=== PATIENT | female | born 1985 | race Caucasian/White ===

== ENCOUNTER → 2018-06-01 11:22 | Outpatient (CLI) | payer OTHER, SELFPAY ==
--- NOTE | 2018-06-01 11:25 | DI.US.S_ITS ---
PROCEDURE: US OB <= 14 WEEKS FETUS INDICATIONS: VIABILITY AND DATES OUTSIDE/PRIOR DATING DATA: Last menstrual period (LMP): 03/26/18. LMP-based estimated date of delivery (ROMEO): 12/31/18. First dating scan (date and location): 06/01/18, [facility]. Estimated date of delivery (ROMEO) from first dating scan: 01/04/19. TECHNIQUE: Real-time scanning was performed of the fetus and maternal pelvic organs, with image documentation. Endovaginal scanning was also performed to better visualize the fetus and maternal ovaries. COMPARISON: None. FINDINGS: Embryo: A single live intrauterine is seen. The measured heart rate is 171 beats per minute. The crown-rump length measures 2.3 cm, corresponding to an estimated gestational age of 9 weeks 0 days. It is too early for detailed anatomic assessment. By visual inspection, the amount of amniotic fluid is within normal limits. No significant findings of subchorionic/perigestational hemorrhage are seen. Measurement variability in dating: +/- 4 weeks by LMP, +/- 7 days by mean sac diameter (use before 6 weeks gestation if crown-rump length not able to be measured), +/- 5 days by crown-rump length (up to 8 weeks 6 days gestation), +/- 7 days by crown-rump length (up to 13 weeks 6 days gestation). Maternal organs: Ovaries are unremarkable. Limited images through the kidneys demonstrate no hydronephrosis. IMPRESSION: A single live intrauterine is seen. No significant discrepancy is found between the estimated gestational age based on these images and the estimated gestational age based upon the given date of the last menstrual period. Dictated by: Jose Resendez M.D. on 06/01/2018 at 12:30 Approved by: Jose Resendez M.D. on 06/01/2018 at 12:31
== END ==
PROVIDERS: PCP Nurse Practitioner Family; Visit Provider Specialist
DX: Z34.01 Encounter for supervision of normal first pregnancy, first trimester (principal); Z3A.09 9 weeks gestation of pregnancy
CPT/HCPCS: 76801

== ENCOUNTER → 2018-06-01 11:48 | Outpatient (CLI) | payer OTHER, SELFPAY ==
[2018-06-01 12:33] LABS: Add Manual Diff / Slide Review NO; Basophils Absolute Auto 0 /uL (0-100); Basophils Percent Auto 0.4 % (0-2); Eosinophils Absolute Auto 100 /uL (0-450); Eosinophils Percent Auto 0.6 % (2-4); Hematocrit 44.7 % (36-46); Lymphocytes Absolute Auto 2200 /uL (1100-4500); Lymphocytes Percent Auto 26.6 % (25-40); Mean Corpuscular HGB Conc 33.6 % (30-36); Mean Corpuscular Hemoglobin 30.8 PG (26-34); Mean Corpuscular Volume 91.6 fL (80-100); Monocytes Absolute Auto 600 /uL (0-900); Monocytes Percent Auto 6.7 % (3-14); Neutrophils Absolute Auto 5400 /uL (1500-7000); Neutrophils Percent Auto 65.7 % (50-75); Platelet Count 212 X10^3/uL (150-400); Red Blood Cell Count 4.88 X10^6/uL (4.0-5.2); Red Cell Distribution Width 14.1 % (11.6-14.8); White Blood Cell Count 8.3 X10^3/uL (4.5-11.0)
[2018-06-01 13:23] LABS: Appearance Urine UA SL CLOUDY; Bilirubin Urine UA NEGATIVE (NEGATIVE); Color Urine UA YELLOW; Glucose Urine UA NEGATIVE (Negative); Ketones Urine UA NEGATIVE (NEGATIVE); Leukocyte Esterase Urine UA TRACE (NEGATIVE); Nitrite Urine UA NEGATIVE (Negative); Occult Blood Urine UA TRACE-LYSED (Negative); Protein Urine UA NEGATIVE (Negative); Specific Gravity Urine UA <=1.005 (1.000-1.035); Urobilinogen Urine UA 0.2 E.U./dL (0.2)
[2018-06-01 15:54] LABS: Hepatitis B Surface Antigen NEGATIVE s/c (NEGATIVE); Rubella Antibody IgG 8.8 IU/mL (>15)
[2018-06-01 16:09] LABS: HIV 1 and 2 Antibody NEGATIVE (NEGATIVE); Hep C Virus Ab w/Reflex Quant NEGATIVE s/c (NEGATIVE)
[2018-06-01 17:29] LABS: Amorphous Sediment Urine 1+; Bacteria Urine Moderate (10-30); Mucus Urine 1+ (Negative); RBC Urine 0-1/HPF (0-5/HPF); Renal Epithelial Cells Urine 0-1/HPF; Squamous Epithelial Cell Urine 1-5 /HPF; WBC Urine 1-5/HPF (0-5/HPF)
[2018-06-03 14:12] LABS: RPR Screen Nonreactive (Nonreactive)
== END ==
PROVIDERS: PCP Nurse Practitioner Family; Visit Provider Specialist
DX: Z34.91 Encounter for supervision of normal pregnancy, unspecified, first trimester (principal)
CPT/HCPCS: 36415; 80055; 81003; 81015; 86703; 86787; 86803; 86850; 86900; 86901; 87086

== ENCOUNTER → 2018-12-02 11:55 | Outpatient (CLI) | payer OTHER, SELFPAY ==
[2018-12-03 14:00] LABS: Strep Grp B PCR POS for Grp B Strep
== END ==
PROVIDERS: PCP Nurse Practitioner Family; Visit Provider Specialist
DX: Z34.03 Encounter for supervision of normal first pregnancy, third trimester (principal); Z3A.36 36 weeks gestation of pregnancy
CPT/HCPCS: 87186; 87653

== ENCOUNTER 2019-01-02 09:33 | Outpatient (CLI) | payer OTHER, SELFPAY ==
--- NOTE | 2019-01-02 10:52 | PM.OBTRLD ---
Visit Information Visit Information Date of evaluation: 01/02/19 Primary OB Provider: Porsha Mccall Reason for Evaluation: Yes non-stress test non-stress test reason: other (Postdates) [facility] Social History Smoking Status: Former smoker Social History Smoking Status: Former smoker Evaluation Evaluation Baseline heart rate: 130 Variability: Moderate (11-25) monitor accelerations: Present monitor decelerations: Absent Contraction Frequency (minutes): 0 Category of Tracing: I Diagnosis, Plan/Disposition Final Diagnosis (1) 40 weeks gestation of : Current Visit: No Status: Acute Plan/Disposition Plan: Reactive nonstress test. Consent form for induction signed. She is scheduled for January 04 OB Disposition: home
== END 2019-01-02 10:20 | disposition home or self-care (01) ==
LOC: LABOR 09:47 → OB 15:34
PROVIDERS: PCP Nurse Practitioner Family; Visit Provider Specialist
DX: O48.0 Post-term pregnancy (principal); Z3A.40 40 weeks gestation of pregnancy
CPT/HCPCS: 59025; G0378; G0379

== ENCOUNTER 2019-01-04 06:59 | Observation (INO) | payer OTHER, SELFPAY ==
[2019-01-04] MEDS: CLINDAMYCIN 900 MG/50 ML PIGGYBACK 50 MG IV (08:04)
[2019-01-04] MEDS: LACTATED RINGERS 1,000 ML 100 ML IV (08:04)
[2019-01-04] MEDS: OXYTOCIN PREMIX 30 UNIT/500 ML PLAST..BAG IV (08:10)
[2019-01-04 08:34] LABS: Add Manual Diff / Slide Review NO; Basophils Absolute Auto 0 /uL (0-100); Basophils Percent Auto 0.3 % (0-2); Eosinophils Absolute Auto 100 /uL (0-450); Eosinophils Percent Auto 1.8 % (2-4); Hematocrit 38.3 % (36-46); Hemoglobin 13.4 g/dL (12.0-16.0); Lymphocytes Absolute Auto 2000 /uL (1100-4500); Lymphocytes Percent Auto 25.9 % (25-40); Mean Corpuscular Hemoglobin 32.1 PG (26-34); Mean Corpuscular Volume 91.9 fL (80-100); Monocytes Absolute Auto 500 /uL (0-900); Monocytes Percent Auto 6.9 % (3-14); Neutrophils Absolute Auto 5100 /uL (1500-7000); Neutrophils Percent Auto 65.1 % (50-75); Platelet Count 166 X10^3/uL (150-400); Red Blood Cell Count 4.16 X10^6/uL (4.0-5.2); Red Cell Distribution Width 14.6 % (11.6-14.8); White Blood Cell Count 7.9 X10^3/uL (4.5-11.0)
[2019-01-04 10:48] VITALS: BP 96/62
--- NOTE | 2019-01-04 20:50 | P.HPOB_ITS ---
OB HPI Date/Time Date of admission: 01/04/19 Date Patient Seen: 01/04/19 Time Patient Seen: 08:30 History of Present Condition Chief complaint: OBS : 1 Para: 0 Estimated Date of Delivery: 12/31/18 Estimated Gestational Age (weeks): 40 Narrative: Kristopher Laureano is a 33 year old female admitted for postdates in duction Indications Indication for induction OB: post dates History of Present care: good care, initiated at week # (11), number of visits (12) and pounds weight gain (38) Dating criteria: LMP confirmed by 1st trimester US Ultrasounds: normal mid trimester US Obstetrical complications: none Medical complications: none Preadmission Labs Blood type: A (+) positive -: Antibody screen: negative, GBS status: positive, HBsAG: negative, HIV: negative and RPR/VDLR: negative -: Chlamydia screen: not detected and Gonorrhea screen: not detected -: Rubella: not immune and Varicella: immune HCAB: negative PAP: Normal Quad screen: Normal 1 hr GTT: 104 Evaluation Evaluation Baseline heart rate: 120 Variability: Moderate (11-25) monitor accelerations: Present monitor decelerations: Absent Contraction Frequency (minutes): 0 Category of Tracing: I Cervical dilation (cm): 2 Cervical effacement (%): 80 station: -2 Laboratory results: Laboratory Tests 01/04/19 01/04/19 08:10 08:10 WBC 7.9 RBC 4.16 Hgb 13.4 Hct 38.3 MCV 91.9 MCH 32.1 MCHC 35.0 RDW 14.6 Plt Count 166 Neut % (Auto) 65.1 Lymph % (Auto) 25.9 [place] % (Auto) 6.9 Eos % (Auto) 1.8 L Baso % (Auto) 0.3 Neut # (Auto) 5100 Lymph # (Auto) 2000 [place] # (Auto) 500 Eos # (Auto) 100 Baso # (Auto) 0 Blood Type A Positive Antibody Screen Negative [facility] Medical History (Updated 01/04/19 @ 20:57 by Porsha Mccall MD) Depression (Acute) IBS (irritable bowel syndrome) (Acute) OCD (obsessive compulsive disorder) (Acute) Surgical History (Updated 01/04/19 @ 20:57 by Porsha Mccall MD) Hx of tonsillectomy (Acute) Family History (Updated 01/04/19 @ 20:59 by Porsha Mccall MD) Mother Cancer Family/Other Cancer Social History Smoking Status: Former smoker Family History (Updated 01/04/19 @ 20:59 by Porsha Mccall MD) Mother Cancer Family/Other Cancer Social History Smoking Status: Former smoker Meds Home Medications and Allergies Home Medications Medication Instructions Recorded Confirmed Type glycerin (adult) 1 suppositor PA DAILY PRN 06/01/18 06/01/18 History prenat.vits,rosa,jgr-qicy-jqesz 1 tab PO DAILY 06/01/18 06/01/18 History breast pump #1 each 10/28/18 Rx Allergies Allergy/AdvReac Type Severity Reaction Status Date / Time Cephalosporins AdvReac Hives Verified 06/01/18 11:38 Penicillins AdvReac Hives Verified 06/01/18 11:36 Review of Systems Review of Systems Narrative: No headaches, scotomata, epigastric pain. Good movement. No leakage of fluid. ROS Unobtainable: All systems reviewed & are unremarkable except as noted in HPI and below Exam Vital Signs (past 8 hours): Blood pressure 96/57, temperature 97.5?, pulse 71 Narrative Exam Narrative: HEENT exam within normal limits. Abdomen is soft, nontender with vertex. Extremities without edema and nontender. Objective Labs Result Diagrams: 01/04/19 08:10 Labs: Laboratory Results - last 24 hr 01/04/19 01/04/19 08:10 08:10 WBC 7.9 RBC 4.16 Hgb 13.4 Hct 38.3 MCV 91.9 MCH 32.1 MCHC 35.0 RDW 14.6 Plt Count 166 Neut % (Auto) 65.1 Lymph % (Auto) 25.9 [place] % (Auto) 6.9 Eos % (Auto) 1.8 L Baso % (Auto) 0.3 Neut # (Auto) 5100 Lymph # (Auto) 2000 [place] # (Auto) 500 Eos # (Auto) 100 Baso # (Auto) 0 Blood Type A Positive Antibody Screen Negative Assessment and Plan Assessment and Plan Assessment and Plan narrative: Postdates with favorable cervix plan is for Pitocin induction.
--- NOTE | 2019-01-04 21:01 | PM.DS.1 ---
History of Present Illness History of Present Illness Date Patient Seen: 01/04/19 Time Patient Seen: 15:30 Chief complaint: OBS Narrative: Patient was admitted for Pitocin induction for postdates. She had contractions on the monitor but no increase in discomfort and no change in her cervix. Discharge Providers Provider Date of admission: 01/04/19 06:59 Discharge Date: 01/04/19 Primary care physician: PAULA Lopes Consults: 01/04/19 07:12 Consult to Anesthesiology Urgent Comment: Consulting Provider: Anesthesiologist Reason for consultation: Epidural Has provider been notified: No Discharge provider: Porsha Mccall MD Summary Hospital Course Discharge Diagnosis: Failed induction for postdates Hospital Course: Patient arrived on Labor and delivery for Pitocin induction. She was begun on IV Pitocin with contractions monitored but no change in her cervix. Options reviewed with the patient decision was made to send the patient to her hotel room overnight and return in a.m. for repeat attempt at induction unless she goes into labor on her own. Status at Discharge Cognitive/behavioral status at discharge: oriented Functional status at discharge: independent ambulation Overall status at discharge: patient is back to baseline Time Spent with Patient Time spent: Less than 30 minutes Exam Vital Signs (past 8 hours): Blood pressure 108/57, pulse 76, temperature 37? Narrative Exam Narrative: Patient is comfortable. No change in cervix. No leakage of fluid. Objective Labs Result Diagrams: 01/04/19 08:10 Labs: Laboratory Results - last 24 hr 01/04/19 01/04/19 08:10 08:10 WBC 7.9 RBC 4.16 Hgb 13.4 Hct 38.3 MCV 91.9 MCH 32.1 MCHC 35.0 RDW 14.6 Plt Count 166 Neut % (Auto) 65.1 Lymph % (Auto) 25.9 [place] % (Auto) 6.9 Eos % (Auto) 1.8 L Baso % (Auto) 0.3 Neut # (Auto) 5100 Lymph # (Auto) 2000 [place] # (Auto) 500 Eos # (Auto) 100 Baso # (Auto) 0 Blood Type A Positive Antibody Screen Negative Discharge Plan Discharge Plan Patient Disposition: Home Discharge comment: failed induction return in am Discharge Med Rec/Prescriptions Prescriptions: Continued (DME) breast pump [Lullaby Double Electric Breast] device See Dose Instructions .ROUTE .MEDSUPPLY Qty: 1 RF: 0 prenat.vits,rosa,pgx-sami-[id number] tablet 1 tab PO DAILY RF: 0 Discontinued glycerin (adult) suppository 1 suppositor RI DAILY PRNRF: 0 Follow up/Referrals: Tia Lew ARNP [Primary Care Provider] - Provider Discharge Instructions Diet: Regular Discharge Data Primary Care Provider: Tia Lew Attending Provider: Porsha Mccall Admit Date/Time: 01/04/19 06:59 Discharges patient from system. Discharge Date/Time: 01/04/19 16:09
== END 2019-01-04 16:09 | disposition home or self-care (01) ==
PROVIDERS: Admitting Provider Specialist; PCP Nurse Practitioner Family; Visit Provider Specialist
DX: O48.0 Post-term pregnancy (principal); Z3A.40 40 weeks gestation of pregnancy
CPT/HCPCS: 36415; 59025; 59050; 85025; 86850; 86900; 86901; 96360; G0378; G0379; J2590

== ENCOUNTER 2019-01-06 06:52 | Inpatient (IN) | payer OTHER, SELFPAY ==
[2019-01-06] MEDS: CLINDAMYCIN 900 MG/50 ML PIGGYBACK 50 MG IV ×2 (07:47→15:19)
[2019-01-06] MEDS: LACTATED RINGERS 1,000 ML 100 ML IV ×3 (07:47→21:05)
[2019-01-06] MEDS: OXYTOCIN PREMIX 30 UNIT/500 ML PLAST..BAG IV (07:52)
[2019-01-06 09:30] VITALS: BP 107/63
[2019-01-06] MEDS: CALCIUM CARBONATE 500 MG TAB 1000 MG PO (17:33)
--- NOTE | 2019-01-06 19:48 | P.HPOB_ITS ---
OB HPI Date/Time Date of admission: 01/06/19 Date Patient Seen: 01/06/19 Time Patient Seen: 07:15 History of Present Condition Chief complaint: LABOR & DELIVERY : 1 Para: 0 Estimated Date of Delivery: 12/31/18 Estimated Gestational Age (weeks): 40 Narrative: Kristopher Laureano is a 33 year old female admitted for induction Indications Indication for induction OB: post dates History of Present care: good care, initiated at week # (11), number of visits (12) and pounds weight gain (26) Dating criteria: LMP confirmed by 1st trimester US Ultrasounds: normal mid trimester US Obstetrical complications: none Medical complications: none Preadmission Labs -: Antibody screen: negative, GBS status: positive, HBsAG: negative, HIV: negative and RPR/VDLR: negative -: Chlamydia screen: not detected and Gonorrhea screen: not detected -: Rubella: not immune and Varicella: immune HCAB: negative PAP: Normal Quad screen: Normal 1 hr GTT: 104 Evaluation Evaluation Baseline heart rate: 130 Variability: Moderate (11-25) monitor accelerations: Present monitor decelerations: Absent Contraction Frequency (minutes): 5 Category of Tracing: I Cervical dilation (cm): 2 Cervical effacement (%): 80 station: -1 [facility] Medical History (Updated 01/04/19 @ 20:57 by Porsha Mccall MD) Depression (Acute) IBS (irritable bowel syndrome) (Acute) OCD (obsessive compulsive disorder) (Acute) Surgical History (Updated 01/04/19 @ 20:57 by Porsha Mccall MD) Hx of tonsillectomy (Acute) Family History (Updated 01/04/19 @ 20:59 by Porsha Mccall MD) Mother Cancer Family/Other Cancer Social History Smoking Status: Former smoker Family History (Updated 01/04/19 @ 20:59 by Porsha Mccall MD) Mother Cancer Family/Other Cancer Social History Smoking Status: Former smoker Meds Home Medications and Allergies Home Medications Medication Instructions Recorded Confirmed Type prenat.vits,rosa,ixn-cxlv-kpyrz 1 tab PO DAILY 06/01/18 01/06/19 History breast pump #1 each 10/28/18 Rx Allergies Allergy/AdvReac Type Severity Reaction Status Date / Time Cephalosporins AdvReac Hives Verified 06/01/18 11:38 Penicillins AdvReac Hives Verified 06/01/18 11:36 Review of Systems Review of Systems Narrative: Patient denies leakage of fluid. Good movement. No signs or symptoms of preeclampsia ROS Unobtainable: All systems reviewed & are unremarkable except as noted in HPI and below Exam Narrative Exam Narrative: HEENT exam within normal limits. Lungs are clear to ausc ultation percussion. Heart is regular rate and rhythm no S3-S4 or murmurs. Gravid abdomen. Infant is vertex. Extremities with trace edema and nontender. Assessment and Plan Assessment and Plan Assessment and Plan narrative: 40 week 6 day in for Pitocin induction. She had failed Pitocin induction 2 days ago.
[2019-01-06] MEDS: FENT 2MCG/ML BUPIV 0.125% EPI 200 MCG/100 ML PLAST..BAG 8 MCG EPIDURAL (21:03)
--- NOTE | 2019-01-07 02:01 | P.PCNOB_ITS ---
Labor & Delivery Delivery date: 01/07/19 Intrapartal events: Prolonged 2nd Stage > 2.5 hours Induction method: per pitocin protocol Delivery monitor: external FHT and external uterine Route of delivery: L&D Laceration Description: Perineal - 2nd Degree Delivery repair: chromic (3 0) Estimated blood loss (mL): 100 Anesthesia type: Epidural Narrative: Patient arrived on Labor and delivery for Pitocin induction for postdates. She received an epidural catheter for pain control. heart tones category 1 to category 2 throughout labor. Patient delivered spontaneously, over an intact perineum. The viable male infant was placed on maternal abdomen. After the cord stopped pulsating the cord was clamped, cut, and cord bloods obtained. Placenta delivered spontaneously, intact, with 3 vessels. There were no cervical or vaginal tears. There is a second-degree perineal tear that was repaired in the usual 2 layer fashion with 3 0 chromic suture. Baby Boy Jeremiah weight 9 lb 1 oz with Apgars of 9 and 9 [place] Baby 1: gender: Male Presentation: vertex position: Right Occiput Anterior Placenta delivery description: Spontaneous cord vessel description: 3 Vessels score (1 min): 9 score (5 min): 9 Plan for aftercare: Routine care
[2019-01-07] MEDS: LANOLIN OINT 7 GM 1 APPLIC TOP (09:49)
[2019-01-07] MEDS: DERMOPLAST SPRAY 20% 60 ML 1 SPRAY TOP (09:49)
[2019-01-07] MEDS: DOCUSATE 250 MG CAPSULE PO (09:49)
[2019-01-07] MEDS: PRENATAL VIT,CALC/IRON/FOLIC 1 TABLET 1 TAB PO (09:49)
[2019-01-07 09:50] VITALS: TEMP 36.8
[2019-01-07] MEDS: IBUPROFEN 600 MG TABLET PO ×2 (09:50→16:18)
--- NOTE | 2019-01-07 14:18 | PM.OBPN.1 ---
Subjective - OB Subjective Patient comments: no complaints [place] baby status: doing well feeding status: exclusively breast feeding Date Patient Seen: 01/07/19 Time Patient Seen: 14:18 Interval history: Patient is day 1. She is having some difficulty with breast-feeding but continued to try. She has some discomfort in her perineal area. Bleeding is moderate. No signs or symptoms of preeclampsia. Exam Vital Signs (past 8 hours): Blood pressure 98/64, pulse 78, temperature 98.2?- 01/07/19 09:50 Temperature 98.2 F Narrative Exam Narrative: Abdomen is soft, nontender. Uterus is firm, at U, nontender. Extremities without edema and nontender. Assessment & Plan Assessment and Plan (1) Vaginal delivery: Status: Acute Current Visit: Yes Plan day: 1 plan OB: routine care Time Spent With Patient Time: Total time spent is greater than 50% in coordination of care (as documented) at patient's floor/unit and/or counseling patient: Time with patient: less than 15 minutes
[2019-01-07 16:18] VITALS: TEMP 36.8
[2019-01-08 05:27] LABS: Add Manual Diff / Slide Review NO; Basophils Absolute Auto 100 /uL (0-100); Basophils Percent Auto 0.6 % (0-2); Eosinophils Absolute Auto 200 /uL (0-450); Eosinophils Percent Auto 2.1 % (2-4); Hematocrit 37.5 % (36-46); Hemoglobin 12.7 g/dL (12.0-16.0); Lymphocytes Absolute Auto 2900 /uL (1100-4500); Lymphocytes Percent Auto 25.9 % (25-40); Mean Corpuscular Hemoglobin 31.7 PG (26-34); Mean Corpuscular Volume 93.5 fL (80-100); Monocytes Absolute Auto 700 /uL (0-900); Neutrophils Absolute Auto 7200 /uL (1500-7000); Neutrophils Percent Auto 65.4 % (50-75); Platelet Count 162 X10^3/uL (150-400); Red Blood Cell Count 4.02 X10^6/uL (4.0-5.2); Red Cell Distribution Width 14.8 % (11.6-14.8)
[2019-01-08] MEDS: DOCUSATE 250 MG CAPSULE PO (10:22)
[2019-01-08] MEDS: PRENATAL VIT,CALC/IRON/FOLIC 1 TABLET 1 TAB PO (10:22)
--- NOTE | 2019-01-08 11:15 | PM.OBDS.1 ---
Discharge Providers Provider Date of admission: 01/06/19 06:52 Discharge Date: 01/08/19 Primary care physician: PAULA Lopes Consults: 01/06/19 07:20 Consult to Anesthesiology Urgent Comment: Consulting Provider: Anesthesiologist Reason for consultation: epidural Has provider been notified: No 01/07/19 09:02 Consult to Inspector [employer] Routine Comment: Discharge provider: Porsha Mccall MD Summary Hospital Course Date Patient Seen: 01/08/19 Time Patient Seen: 11:15 Procedures: Pitocin induction, epidural catheter, spontaneous vaginal delivery, repair of second-degree perineal tear Hospital Course: Patient was admitted for Pitocin induction for postdates and distance from the hospital. She received an epidural catheter for pain control. She had a spontaneous vaginal delivery with repair of a second-degree tear. She is ambulatory, urinating without difficulty, without signs or symptoms of preeclampsia. Peripartum Data Infant Delivery Method: Natural Vaginal Laceration description: Perineal - 2nd Degree Procedures: Pitocin induction, epidural catheter, spontaneous vaginal delivery, repair of second-degree tear complications: none [place] 1: Gender: Male Disposition of : home Discharge Diagnosis (1) Vaginal delivery: Status: Acute Status at Discharge Cognitive/behavioral status at discharge: oriented Functional status at discharge: independent ambulation Overall status at discharge: patient is progressing back to baseline Time Spent with Patient Time attestation: Total time spent providing and/or coordinating discharge services: Time spent: Less than 30 minutes Objective Labs Result Diagrams: 01/08/19 05:03 Labs: Laboratory Results - last 24 hr 01/08/19 05:03 WBC 11.0 RBC 4.02 Hgb 12.7 Hct 37.5 MCV 93.5 MCH 31.7 MCHC 34.0 RDW 14.8 Plt Count 162 Neut % (Auto) 65.4 Lymph % (Auto) 25.9 [place] % (Auto) 6.0 Eos % (Auto) 2.1 Baso % (Auto) 0.6 Neut # (Auto) 7200 H Lymph # (Auto) 2900 [place] # (Auto) 700 Eos # (Auto) 200 Baso # (Auto) 100 Exam Vital Signs (past 8 hours): Blood pressure 107/68, pulse of 81, temperature 98.1? Narrative Exam Narrative: Abdomen is soft, nontender. Uterus is firm, at U, nontender. Mild lochia. Repair intact. Extremities without edema and nontender. Patient will receive MMR prior to discharge for rubella nonimmune. Her blood type is Rh positive. She will receive Tdap before she is discharged. Discharge Plan Discharge Plan Patient Disposition: Home Discharge Med Rec/Prescriptions Prescriptions: Continued (DME) breast pump [Lullaby Double Electric Breast] device See Dose Instructions .ROUTE .MEDSUPPLY Qty: 1 RF: 0 prenat.vits,rosa,hho-lqbp-yjdlq tablet 1 tab PO DAILY RF: 0 Follow up/Referrals: Tia Lew ARNP [Primary Care Provider] - Porsha Mccall MD [Physician] - 01/26/19 (Follow-up in Wednesday) Provider Discharge Instructions Diet: Regular Activity: Nothing in vagina for 4 weeks Skin/Wound/Dressing Care Report to your healthcare provider any signs of infection, such as:: chills, fever and increased pain Discharge Data Primary Care Provider: Tia Lew
[2019-01-08 11:24] VITALS: BP 107/68; PULSE 81; RESP 16; TEMP 36.7
[2019-01-08] MEDS: TET,DIPH,PERTUSS(ACELL),VAC/PF 0.5 ML SYRINGE IM (12:00)
[2019-01-08] MEDS: MEASLES,MUMPS,RUBELLA VACC/PF 0.5 ML VIAL SUBCUT (12:09)
== END 2019-01-08 13:00 | disposition home or self-care (01) | DRG 807 ==
PROVIDERS: Admitting Provider Specialist; PCP Nurse Practitioner Family; Visit Provider Specialist
DX: O48.0 Post-term pregnancy (principal); Z37.0 Single live birth; O99.824 Streptococcus B carrier state complicating childbirth; Z3A.40 40 weeks gestation of pregnancy; O70.1 Second degree perineal laceration during delivery
CPT/HCPCS: 01967; 36415; 59050; 59400; 85025; 90715; G0379; J2590

== ENCOUNTER → 2020-08-14 14:00 | Outpatient (CLI) | payer OTHER, SELFPAY ==
[2020-08-14 14:27] LABS: Add Manual Diff / Slide Review NO; Basophils Absolute Auto 0 /uL (0-100); Basophils Percent Auto 0.4 % (0-2); Eosinophils Absolute Auto 100 /uL (0-450); Eosinophils Percent Auto 1.2 % (2-4); Hematocrit 41.5 % (36-46); Hemoglobin 14.2 g/dL (12.0-16.0); Lymphocytes Absolute Auto 2800 /uL (1100-4500); Lymphocytes Percent Auto 32.6 % (25-40); Mean Corpuscular HGB Conc 34.3 % (30-36); Mean Corpuscular Hemoglobin 30.4 PG (26-34); Mean Corpuscular Volume 88.8 fL (80-100); Monocytes Absolute Auto 500 /uL (0-900); Monocytes Percent Auto 5.8 % (3-14); Neutrophils Absolute Auto 5200 /uL (1500-7000); Platelet Count 199 X10^3/uL (150-400); Red Blood Cell Count 4.68 X10^6/uL (4.0-5.2); Red Cell Distribution Width 14.7 % (11.6-14.8); White Blood Cell Count 8.7 X10^3/uL (4.5-11.0)
[2020-08-14 15:17] LABS: Appearance Urine UA CLEAR; Bilirubin Urine UA NEGATIVE (NEGATIVE); Color Urine UA YELLOW; Glucose Urine UA NEGATIVE (Negative); Ketones Urine UA NEGATIVE (NEGATIVE); Leukocyte Esterase Urine UA TRACE (NEGATIVE); Nitrite Urine UA NEGATIVE (Negative); Occult Blood Urine UA TRACE-LYSED (Negative); Protein Urine UA NEGATIVE (Negative); Urobilinogen Urine UA 0.2 E.U./dL (0.2)
[2020-08-14 15:25] LABS: Bacteria Urine None Seen
[2020-08-14 16:01] LABS: RBC Urine 0-1/HPF (0-5/HPF); Squamous Epithelial Cell Urine 1-5 /HPF (0-5/HPF); WBC Urine 0-1/HPF (0-5/HPF)
[2020-08-15 05:30] LABS: RPR Screen Non Reactive (Non Reactive)
[2020-08-15 15:04] LABS: Varicella IgG Antibody 2264 index (Immune >165)
[2020-08-16 00:03] LABS: Hepatitis B Surface Antigen NEGATIVE s/c (NEGATIVE); Rubella Antibody IgG 61.7 IU/mL (>15)
[2020-08-16 00:20] LABS: HIV 1 & 2 Ab/Ag 4th Gen Combo NEGATIVE (NEGATIVE); Hep C Virus Ab w/Reflex Quant NEGATIVE s/c (NEGATIVE)
== END ==
PROVIDERS: PCP Specialist; Referring Provider Specialist; Visit Provider Specialist
DX: Z34.81 Encounter for supervision of other normal pregnancy, first trimester (principal)
CPT/HCPCS: 36415; 80055; 81003; 81015; 86787; 86803; 86850; 86900; 86901; 87086; 87389

== ENCOUNTER → 2021-02-18 12:46 | Outpatient (CLI) | payer OTHER, SELFPAY | PROVIDERS: PCP Specialist; Referring Provider Specialist; Visit Provider Specialist | DX: Z34.83 Encounter for supervision of other normal pregnancy, third trimester (principal); Z3A.35 35 weeks gestation of pregnancy | CPT/HCPCS: 87086 ==

== ENCOUNTER → 2021-03-12 12:10 | Outpatient (CLI) | payer OTHER, SELFPAY ==
[2021-03-13 09:39] LABS: Strep Grp B PCR NEG for Grp B Strep
== END ==
PROVIDERS: PCP Specialist; Visit Provider Specialist
DX: Z34.83 Encounter for supervision of other normal pregnancy, third trimester (principal); Z3A.37 37 weeks gestation of pregnancy
CPT/HCPCS: 87653

== ENCOUNTER 2021-03-23 17:57 | Inpatient (IN) | payer OTHER, SELFPAY ==
[2021-03-23 19:09] LABS: Add Manual Diff / Slide Review NO; Basophils Absolute Auto 0 /uL (0-100); Basophils Percent Auto 0.5 % (0-2); Eosinophils Absolute Auto 200 /uL (0-450); Eosinophils Percent Auto 1.9 % (2-4); Hematocrit 38.7 % (36-46); Hemoglobin 13.6 g/dL (12.0-16.0); Lymphocytes Absolute Auto 2300 /uL (1100-4500); Lymphocytes Percent Auto 28.3 % (25-40); Mean Corpuscular Hemoglobin 31.3 PG (26-34); Mean Corpuscular Volume 89.4 fL (80-100); Monocytes Absolute Auto 500 /uL (0-900); Monocytes Percent Auto 6.3 % (3-14); Neutrophils Absolute Auto 5200 /uL (1500-7000); Platelet Count 169 X10^3/uL (150-400); Red Blood Cell Count 4.33 X10^6/uL (4.0-5.2); Red Cell Distribution Width 14.7 % (11.6-14.8); White Blood Cell Count 8.2 X10^3/uL (4.5-11.0)
[2021-03-23 19:10] VITALS: BP 106/65
[2021-03-23 19:33] LABS: COVID19 -Nasal RAPID Negative (Negative)
[2021-03-23] MEDS: DINOPROSTONE VAG (CERVIDIL) 10 MG VAG (20:00)
[2021-03-24] MEDS: LACTATED RINGERS 1,000 ML 100 ML IV ×2 (09:02→16:37)
[2021-03-24] MEDS: OXYTOCIN PREMIX 30 UNIT/500 ML PLAST..BAG IV (09:02)
--- NOTE | 2021-03-24 09:20 | P.HPOB_ITS ---
OB HPI Date/Time Date of admission: 03/23/21 Date Patient Seen: 03/24/21 Time Patient Seen: 09:20 History of Present Condition Chief complaint: OBSERVATION/INDUCTION : 2 Para: 1 Estimated Date of Delivery: 03/22/21 Estimated Gestational Age (weeks): 40 Narrative: Kristopher Laureano is a 35 year old female admitted for induction for distance from the hospital Indications Indication for induction OB: maternal distance History of Present care: good care, initiated at week # (8), number of visits (10) and pounds weight gain (50) Dating criteria: based on 1st trimester US only Ultrasounds: normal mid trimester US Obstetrical complications: none Medical complications: none Preadmission Labs Blood type: A (+) positive -: Antibody screen: negative, GBS status: negative, HBsAG: negative, HIV: negative and RPR/VDLR: negative -: Chlamydia screen: not detected and Gonorrhea screen: not detected -: Rubella: immune and Varicella: immune HCAB: negative Quad screen: Normal 1 hr GTT: 141 3 hr GTT: 1 hr (94), 2 hr (94) and 3 hr (89) Fasting blood glucose: 92 Prior (ies) History: 01/07/2019 40 week gestation 9 lb 1 oz male Evaluation Evaluation Baseline heart rate: 140 Variability: Moderate (11-25) monitor accelerations: Present Monitor Decelerations: Absent Contraction Frequency (minutes): 4 Uterine Contraction Intensity: Mild Category of Tracing: Reactive Status: Category l Dilation (cm): 1 Effacement (%): 0 station: -4 Position of cervix: posterior Consistency: soft PFSH Medical History (Updated 11/05/20 @ 22:35 by Jeanine Hernandez) Abnormal Pap smear of cervix (~2006) Acne Allergic rhinitis (~1999) Chlamydia (~2006) Depression (~1999) Foot fracture (~2016) 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 Family/Other Cancer Father Depression Immune disorder Cardiac anomaly S/P coronary artery stent placement Mental health problem Grandmother Cancer Breast cancer Grandfather Chronic a-fib Grandmother Old age Grandfather Cancer Colon cancer Brother Depression Anxiety Social History marital status: number of children: 1 household members: spouse and children lives independently: Yes pets and animals: Yes (X 1 dog) education level: college ([employer] Degree : considering her MA still) occupational status: unemployed current occupational exposures/hazards: No special swati needs: No Smoking Status: Former smoker Tobacco: How many years used: 7 second hand exposure: No alcohol intake: former (pre- : have not had any since first ) substance use type: does not use and 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 Good movement. No leakage of fluid. 2 days ago the patient developed a rash in her vulvar area that they used 1 dose of wupj-hub-kaiuopg yeast cream for. OB Exam Narrative Exam Narrative: Blood pressure 107/63, pulse of 81, temperature 97.8? HEENT exam within normal limits. Lungs are clear to auscultation percussion. Heart is regular rate and rhythm no S3-S4 murmurs. Abdomen is gravid. Fetus is vertex. Patient does have a raised red rash in her vulvar area consistent with yeast. Extremities without edema and nontender. Objective Labs Result Diagrams: 03/23/21 18:50 Labs: Laboratory Results - last 24 hr 03/23/21 03/23/21 03/23/21 18:50 18:50 18:50 WBC 8.2 RBC 4.33 Hgb 13.6 Hct 38.7 MCV 89.4 MCH 31.3 MCHC 35.0 RDW 14.7 Plt Count 169 Neut % (Auto) 63.0 Lymph % (Auto) 28.3 [place] % (Auto) 6.3 Eos % (Auto) 1.9 L Baso % (Auto) 0.5 Neut # (Auto) 5200 Lymph # (Auto) 2300 [place] # (Auto) 500 Eos # (Auto) 200 Baso # (Auto) 0 SARS-CoV-2 (PCR) Negative Blood Type A Positive Antibody Screen Negative Assessment and Plan Assessment and Plan Assessment and Plan narrative: 40 week gestation admitted for induction for distance from the hospital. Patient received Cervidil overnight. She will be going to Pitocin today. Anticipate vaginal delivery. Patient does appear to have a yeast infection of her vulva that will be treated with Diflucan. Time Spent with Patient Total time spent with greater than 50% in coordination of care (as documented) at patient's floor/unit and/or counseling patient:: less than 15 minutes
[2021-03-24] MEDS: FLUCONAZOLE 150 MG TABLET PO (09:32)
--- NOTE | 2021-03-24 14:49 | PM.OBPNLAB ---
Date/Time Date Patient Seen: 03/24/21 Time Patient Seen: 14:49 Pain Control Pain control: tolerating well Pelvic Exam Dilation (cm): 1 Effacement (%): 70 station: -2 Amniotic membrane status: Intact Contractions Contractions on admission: regular Monitor mode: External Pitocin rate (mU/min): 27 Contraction frequency (min): 3 Contraction pattern: Regular Contraction intensity: Moderate Status status: Category l Heart Rate Baseline: 140 Monitor Accelerations: Present Monitor Decelerations: Absent Monitor Variability: Moderate Assessment and Plan Assessment: induction ongoing Plan: continuous present management
--- NOTE | 2021-03-24 15:01 | PM.OBPNLAB ---
Date/Time Date Patient Seen: 03/24/21 Time Patient Seen: 17:53 Pain Control Pain control: tolerating well Pelvic Exam Dilation (cm): 1 Effacement (%): 70 station: -2 Amniotic membrane status: Intact Contractions Monitor mode: External Pitocin rate (mU/min): 27 Contraction frequency (min): 3 Contraction pattern: Regular Contraction intensity: Moderate Status status: Category l Monitor Accelerations: Present Monitor Decelerations: Absent Monitor Variability: Moderate Assessment and Plan Assessment: other Comments: Patient with no significant discomfort with contractions despite Cervidil and Pitocin for 9 hours. discussed options with the patient and patient declines Mock bulb and repeat Prostin. The Pitocin will be turned off and restarted tomorrow morning
--- NOTE | 2021-03-25 07:40 | PM.OBPNLAB ---
Date/Time Date Patient Seen: 03/25/21 Time Patient Seen: 07:42 Pain Control Pain control: tolerating well Pelvic Exam Amniotic membrane status: Intact Contractions Contractions on admission: irregular Monitor mode: External Contraction pattern: Absent Status status: Category l Heart Rate Baseline: 140 Monitor Accelerations: Present Monitor Decelerations: Absent Monitor Variability: Moderate Assessment and Plan Assessment: induction ongoing Comments: restart pitocin
--- NOTE | 2021-03-25 13:24 | PM.OBPNLAB ---
Date/Time Date Patient Seen: 03/25/21 Time Patient Seen: 13:24 Pain Control Pain control: tolerating well Pelvic Exam Dilation (cm): 4 Effacement (%): 75 station: -2 Amniotic membrane status: Ruptured (AROMed for clear fluid) Contractions Monitor mode: External Pitocin rate (mU/min): 27 Contraction frequency (min): 3 Contraction duration (min): 1 Contraction pattern: Regular Contraction intensity: Mild Status status: Category l Heart Rate Baseline: 130 Monitor Accelerations: Present Monitor Decelerations: Absent Monitor Variability: Moderate Assessment and Plan Assessment: induction ongoing (AROMed)
[2021-03-25] MEDS: LACTATED RINGERS 1,000 ML 100 ML IV ×2 (15:06→16:10)
[2021-03-25] MEDS: FENT 2MCG/ML BUPIV 0.125% EPI 200 MCG/100 ML PLAST..BAG 13 MCG EPIDURAL (16:41)
--- NOTE | 2021-03-26 00:33 | PM.OBPRVD ---
Labor & Delivery Delivery date: 03/26/21 Intrapartal Events: Prolonged 2nd Stage > 2.5 hours Cervical ripening method: per Cervidil protocol Induction method: per pitocin protocol Delivery augmentation: rupture of membranes Delivery monitor: external FHT and external uterine Route of delivery: vacuum extraction Indication for instrumentation: maternal exhaustion L&D Laceration Description: Perineal - 2nd Degree Delivery repair: chromic ( 3 0) Estimated blood loss (mL): 300 Anesthesia Type: Epidural Narrative: Patient was admitted for induction for distance from hospital. She received Cervidil followed by Pitocin. She had no progress in labor and due to staffing was slept overnight. She was restarted on Pitocin. She was AROMed for clear fluid. She received an epidural catheter for pain control. The patient progressed to complete and pushing. After over 3 hours of pushing and the need to replace her epidural catheter the patient was exhausted and decision was made to proceed with vacuum extraction. The vacuum was placed for a total of 3 contractions bringing the head to the perineum. With the next contraction the viable male was delivered over an intact perineum. The was placed on maternal abdomen. After the cord stopped pulsating the cord was clamped, cut, and cord bloods obtained. The placenta delivered spontaneously, intact, with 3 vessels. There were no cervical or vaginal tears. A second-degree perineal tear was repaired with 3 0 chromic suture in the usual 2 layer fashion. Both infant mother doing well. [place] Baby 1: gender: Male Presentation: vertex Position: Right Occiput Posterior Placenta delivery description: Spontaneous Cord Vessel Description: 3 Vessels score (1 min): 9 score (5 min): 9 Plan for aftercare: Routine care
[2021-03-26] MEDS: IBUPROFEN 600 MG TABLET PO ×2 (08:10→15:06)
[2021-03-26] MEDS: DOCUSATE 100 MG CAPSULE PO (15:06)
[2021-03-26] MEDS: PRENATAL VIT,CALC/IRON/FOLIC 1 TABLET 1 TAB PO (15:06)
[2021-03-27] MEDS: IBUPROFEN 600 MG TABLET PO (05:15)
--- NOTE | 2021-03-27 07:20 | PM.OBDS.1 ---
Discharge Providers Provider Date of admission: 03/23/21 17:57 Discharge Date: 03/27/21 Primary care physician: Delaney Dallas MD Consults: 03/23/21 18:05 Consult to Anesthesiology Urgent Comment: Consulting Provider: Anesthesiologist Reason for consultation: Epidural Has provider been notified: No 03/27/21 00:28 Consult to Professor Of Spanish Routine Comment: Discharge provider: Porsha Mccall MD Summary Hospital Course Date Patient Seen: 03/27/21 Time Patient Seen: 07:21 Diagnoses: 39 week gestation, vacuum assisted vaginal delivery, repair of second-degree perineal tear Hospital Course: Patient was admitted for induction for distance from the hospital. She received Cervidil, Pitocin, was rested for night than her Pitocin restarted. Patient received an epidural catheter for pain control. She had prolonged 2nd stage of 4 hours of pushing and decision was made to proceed with vacuum assisted vaginal delivery. She delivered a 9 lb 9 oz male infant in the asynclitic occiput posterior position. Patient is well. She is urinating and ambulating well. No significant pain. No headaches, scotomata, epigastric pain. Bleeding is mild. Peripartum Data Delivery Method: Assisted Delivery (Vacuum) Laceration Description: Perineal - 2nd Degree Procedures: Cervidil, Pitocin induction. Vacuum assisted vaginal delivery. Repair of second-degree tear complications: none 1: Gender: Male Disposition of : home Discharge Diagnosis (1) Vacuum-assisted vaginal delivery: Status: Acute Status at Discharge Cognitive/behavioral status at discharge: oriented Functional status at discharge: independent ambulation Overall status at discharge: patient is progressing back to baseline Time Spent with Patient Time attestation: Total time spent providing and/or coordinating discharge services: Time spent: Less than 30 minutes Objective Labs Result Diagrams: 03/23/21 18:50 Exam Vital Signs (past 8 hours): Blood pressure 99/62, pulse 69, temperature 97.6? Narrative Exam Narrative: Abdomen is soft, nontender. Uterus is firm, at U, nontender. Repair is intact. Mild lochia. Extremities without edema and nontender. Patient's blood type is A positive, she is rubella immune, she received Tdap in the 3rd trimester. Discharge Plan Discharge Plan Patient Disposition: Home Discharge orders & Medications Prescriptions: Continued prenat.vits,rosa,[id number] tablet 1 tab PO DAILY 0RF Follow up/Referrals: Porsha Mccall MD [Physician] - 04/30/21 ( in Wednesday pt will be called with time) Delaney Dallas MD [Primary Care Provider] - Diet/Activity/Treatments Diet: Regular Activity: nothing in vagina for 4 weeks Skin/Wound/Dressing Care Report to your healthcare provider any signs of infection, such as:: chills, fever Visit Report/Discharge Packet Stand Alone Forms: Discharge: Care Discharge Data Primary Care Provider: Delaney Dallas
[2021-03-27 08:30] VITALS: BP 99/62; PULSE 69; RESP 16; TEMP 36.8
== END 2021-03-27 08:57 | disposition home or self-care (01) | DRG 806 ==
PROVIDERS: Admitting Provider Specialist; PCP Specialist; Referring Provider Specialist; Visit Provider Specialist
DX: O63.1 Prolonged second stage (of labor) (principal); O98.82 Other maternal infectious and parasitic diseases complicating childbirth; Z37.0 Single live birth; B37.3 Candidiasis of vulva and vagina; Z3A.40 40 weeks gestation of pregnancy; O70.1 Second degree perineal laceration during delivery; O75.81 Maternal exhaustion complicating labor and delivery; O99.891 Other specified diseases and conditions complicating pregnancy; D72.829 Elevated white blood cell count, unspecified; Z20.822 Contact with and (suspected) exposure to COVID-19
CPT/HCPCS: 01967; 36415; 59050; 59200; 59400; 85025; 86850; 86900; 86901; 87635; C9803; G0379; J2590